=== PATIENT | female | born 1960 | race Caucasian/White ===

== ENCOUNTER 2018-07-12 21:00 | Emergency (ER) | payer MEDICARE ==
[~2018-07-12] VITALS: Ht 152.4 cm; Wt 45.4 kg
--- NOTE | 2018-07-12 21:25 | Emergency Room Report ---
History of Present Illness General Chief Complaint: Edema Source: Patient, Medical Record, EMS Present Illness HPI Is a 57-year-old female with multiple medical problem. She has a history of CAD , CHF, CVA with right-sided weakness and pain. She presents with chief complaint of increasing swelling to her left lower extremity. His been ongoing for about 10-12 days. She is currently taking Lasix after being off of it for a couple weeks. She came in today because of increasing pain and fever to the left lower extremity. She had ultrasound done last week was negative for DVT. Not on antibiotics. No nausea no vomiting. Pain is 10 out of 10. Worse with movement and palpation. No trauma. Currently she is in a [facility]. 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 Hx Cerebrovascular Accident: Yes - RT SIDED HEMIPARESIS Review of Systems Eye: Denies: eye pain, blurred vision ENT: Denies: ear pain, nose congestion, throat swelling Respiratory: Denies: cough, shortness of breath Cardiovascular: Denies: chest pain, palpitations Gastrointestinal: Denies: abdominal pain, diarrhea, nausea, vomiting Musculoskeletal: Reports: joint pain, muscle pain; Denies: back pain Skin: Denies: rash Neurological: Denies: headache, numbness Endocrine: Denies: increased thirst, increased urine Hematologic/Lymphatic: Denies: easy bruising All Other Systems: negative except mentioned in HPI Physical Exam Vital Signs Date Time Temp Pulse Resp B/P (MAP) Pulse Ox O2 Delivery O2 Flow Rate FiO2 07/12/18 21:14 98.3 81 18 118/65 98 Room Air 98.2 vitals normal Sp02 EP Interpretation: reviewed, normal General Appearance: well appearing, no apparent distress, alert, thin Head: normocephalic, atraumatic Eyes: bilateral eye PERRL, bilateral eye EOMI ENT: hearing grossly normal, normal pharynx Neck: full range of motion, supple, no meningismus Respiratory: chest non-tender, lungs clear, normal breath sounds Cardiovascular #1: regular rate, rhythm, no murmur Gastrointestinal: normal bowel sounds, non tender, no mass, no organomegaly, no bruit, non-distended Musculoskeletal: back normal, swelling - Left lower extremity with swelling and tenderness. Has redness and warm to the touch. Diffuse tenderness. Neurologic: alert, oriented x3, other - right arm hemiplegia Psychiatric: mood/affect normal Skin: warm/dry Medical Decision Making Diagnostic Impression: Primary Impression: Left leg cellulitis ER Course Patient presents with cellulitis of her lower extremity. No evidence of DVT said she had ultrasound done a few days ago. No fracture. Antibiotic started. I arranged for patient to be transferred to [facility] based on insurance. Patient said she felt better and wanted to go back to [facility] with a trial of antibiotics first. If not better than she agreed to be admitted. Lab Results Impression labs unremarkable Last Vital Signs Date Time Temp Pulse Resp B/P (MAP) Pulse Ox O2 Delivery O2 Flow Rate FiO2 07/12/18 21:14 98.3 81 18 118/65 98 Room Air 98.2 Status: improved Disposition: [facility] Condition: Stable Scripts Clindamycin Hcl (CLINDAMYCIN HCL) 300 Mg Capsule 300 MG ORAL THREE TIMES A DAY, #21 CAP Prov: OTTO ROMERO M.D. 07/12/18 Additional Instructions: Elevate leg. Follow-up with your DrCami in 3-5 days for recheck. Return if symptom worsen. OTTO ROMERO M.D. Jul 12, 2018 21:25
[2018-07-12] MEDS ORDERED: Vancomycin 1 GM in D5W 275 ML IVPB ONE (21:30)
[2018-07-12] MEDS ORDERED: cefTRIAXone 1 GM in NS 55 ML IVPB ONE (21:30)
[2018-07-12] MEDS ORDERED: Morphine Sulfate 4mg/ml Inj (IV USE ONLY) IVP ONE ×2 (21:30→23:00)
[2018-07-12 21:45] VITALS: BP 118/65
[2018-07-12 22:05] LABS: ANION GAP 8 mmol/L (5-15); BASOPHILS % (AUTO) 1.6 % (0.0-2.0); BLOOD UREA NITROGEN 22 mg/dL (7-18); CALCIUM 9.7 MG/DL (8.5-10.1); CARBON DIOXIDE 29 MMOL/L (21-32); CHLORIDE 105 MMOL/L (98-107); CREATININE 0.7 MG/DL (0.55-1.30); EOSINOPHILS % (AUTO) 4.7 % (0.0-3.0); HEMATOCRIT 39.3 % (37.0-47.0); HEMOGLOBIN 12.8 G/DL (12.0-16.0); LYMPHOCYTES % (AUTO) 25.7 % (20.0-45.0); MEAN CORPUSCULAR VOLUME 103 FL (80-99); MONOCYTES % (AUTO) 8.5 % (1.0-10.0); NEUTROPHILS % (AUTO) 59.5 % (45.0-75.0); PLATELET COUNT 273 K/UL (150-450); POTASSIUM 3.5 MMOL/L (3.5-5.1); RED BLOOD COUNT 3.84 M/UL (4.20-5.40); RED CELL DISTRIBUTION WIDTH 11.8 % (11.6-14.8); SODIUM 142 MMOL/L (136-145)
[2018-07-12 22:26] LABS: APPEARANCE,URINE CLEAR; BILIRUBIN, URINE NEGATIVE (NEGATIVE); COLOR,URINE PALE YELLOW; GLUCOSE, URINE (UA) NEGATIVE (NEGATIVE); KETONES,URINE NEGATIVE (NEGATIVE); LEUKOCYTE ESTERASE ,URINE 1+ (NEGATIVE); NITRITE,URINE NEGATIVE (NEGATIVE); PH,URINE 7 (4.5-8.0); PROTEIN,URINE NEGATIVE (NEGATIVE); UROBILINOGEN,URINE NORMAL MG/DL (0.0-1.0)
[2018-07-12] MEDS ORDERED: NITROSTAT0.4 M1 SL (22:39)
[2018-07-12] MEDS ORDERED: ASPIRIN81 MG ORAL (22:39)
[2018-07-12] MEDS ORDERED: VENTOLIN HFA18 GM INH (22:39)
[2018-07-12] MEDS ORDERED: ATORVASTATIN CA80 MG ORAL (22:39)
[2018-07-12] MEDS ORDERED: DOCUSATE SODIU250 MG ORAL (22:39)
[2018-07-12] MEDS ORDERED: NORCO 10-325 T1 EACH ORAL (22:39)
[2018-07-12] MEDS ORDERED: PLAVIX75 MG ORAL (22:39)
[2018-07-12] MEDS ORDERED: ACETAMINOPHEN325 M1 ORAL ×2 (22:39)
[2018-07-12] MEDS ORDERED: MILK OF MA400 MG/51 ORAL (22:39)
[2018-07-12] MEDS ORDERED: BACLOFEN10 MG ORAL (22:39)
[2018-07-12] MEDS ORDERED: DULCOLAX10 MG RC (22:39)
[2018-07-12] MEDS ORDERED: FUROSEMIDE40 MG ORAL (22:39)
[2018-07-12] MEDS ORDERED: ISOSORBIDE DINI30 MG ORAL (22:39)
[2018-07-12] MEDS ORDERED: FOLIC ACID1 MG ORAL (22:39)
[2018-07-12] MEDS ORDERED: CLARITIN10 M2 ORAL (22:39)
[2018-07-12] MEDS ORDERED: SOTALOL80 M1 ORAL (22:39)
[2018-07-12] MEDS ORDERED: GABAPENTIN400 MG ORAL (22:39)
[2018-07-12] MEDS ORDERED: QUETIAPINE FUMA50 MG ORAL (22:39)
[2018-07-12] MEDS ORDERED: POTASSIUM CHLO10 ME2 PO (22:39)
[2018-07-12] MEDS ORDERED: CLINDAMYCIN HC300 MG ORAL (23:36)
[2018-07-13 00:15] VITALS: BP 134/67
== END 2018-07-13 00:15 ==
LOC: EDBD 21:00 → EMR 21:25
DX: L03.116 Cellulitis of left lower limb (principal); I25.10 Atherosclerotic heart disease of native coronary artery without angina pectoris; E78.5 Hyperlipidemia, unspecified; F20.9 Schizophrenia, unspecified; I69.851 Hemiplegia and hemiparesis following other cerebrovascular disease affecting right dominant side; Z85.830 Personal history of malignant neoplasm of bone; Z88.6 Allergy status to analgesic agent; Z88.0 Allergy status to penicillin; Z88.2 Allergy status to sulfonamides; I50.9 Heart failure, unspecified
CPT/HCPCS: 36415; 80048; 81001; 83880; 85025; 87040; 96365; 96368; 96375; 96376; 99285; J0696; J1940; J2270; J2405; J3370